=== PATIENT | male | born 1975 | race Caucasian/White ===

== ENCOUNTER 2018-06-03 13:11 | Emergency (ER) | payer OTHER ==
[2018-06-03 13:24] VITALS: BP 125/72; PULSE 79; TEMP 98; BMI 27.2
[2018-06-03] MEDS ORDERED: KETOROLAC TROMETHAMINE 60 MG/2 ML VIAL IM ONE (14:46)
--- NOTE | 2018-06-03 14:49 | PDOC ---
History of Present Illness - General Chief Complaint: Back Pain Stated Complaint: PT. HERE FOR LOWER BACK X 4 DAYS/ PAIN OF 10 Time Seen by Provider: 06/03/18 13:57 - History of Present Illness Initial Comments: 06/03/18 14:45 42-year-old male without comorbidities presents for evaluation of lower back pain with posterior lateral leg radicular symptoms 3 days. He states he was lifting a box at work and felt a strain in his back. Past History - Past Medical History Allergies/Adverse Reactions: Allergies Allergy/AdvReac Type Severity Reaction Status Date / Time No Known Allergies Allergy Verified 06/03/18 13:17 Home Medications: Ambulatory Orders Cyclobenzaprine HCl [Flexeril 10 mg] 10 mg PO HS PRN #10 tablet 06/03/18 Methylprednisolone [Medrol Dose Bo] 4 mg PO ASDIR #21 tablet 06/03/18 - Suicide/Smoking/Psychosocial Hx Smoking History: Never smoked Information on smoking cessation initiated: No Hx Alcohol Use: No Drug/Substance Use Hx: No Review of Systems - Review of Systems Musculoskeletal: Yes: Back Pain Neurological: Yes: See HPI *Physical Exam - Vital Signs Last Vital Signs Temp Pulse Resp BP Pulse Ox 98.0 F 79 20 125/72 99 06/03/18 13:18 06/03/18 13:18 06/03/18 13:18 06/03/18 13:18 06/03/18 13:18 - Physical Exam Comments: 06/03/18 14:46 Lumbar spine skin color and temperature are normal decreased range of motion moderate right and left sided musculature spasm and tenderness. Left greater than right. 5 out of 5 strength in bilateral lower extremities without gross sensorimotor deficits. Is neurovascularly intact Medical Decision Making - Medical Decision Making 06/03/18 14:47 No gross motor deficits or sensory deficits on examination. I will treat his pain with a shot of Toradol have him start a Medrol Dosepak tomorrow and point him in the way of orthopedic spine surgery for further evaluation and treatment. I've also given a prescription for Flexeril 06/03/18 14:49 06/03/18 14:49 *DC/Admit/Observation/Transfer Diagnosis at time of Disposition: Lumbar radiculopathy - Discharge Dispostion Disposition: HOME Condition at time of disposition: Stable Decision to Admit order: No - Prescriptions Prescriptions: Cyclobenzaprine HCl [Flexeril 10 mg] 10 mg PO HS PRN #10 tablet PRN Reason: Muscle Spasms Methylprednisolone [Medrol Dose Bo] 4 mg PO ASDIR #21 tablet - Referrals Referrals: Richard Fritz MD [Primary Care Provider] - Jarod Perez MD [Staff Physician] - - Patient Instructions Printed Discharge Instructions: Lumbar Radiculopathy, DI for Lumbar Radiculopathy Additional Instructions: Regrese a la gaye de emergencias por empeoramiento de los sntomas. Por favor, comience el paquete de esteroides maana y tmelo segn las indicaciones y termine todo el curso. Los relajantes musculares annmarie tableta antes de acostarse y le darn sueo. Janette un seguimiento con ciruga ortopdica de la columna vertebral en 1-2 foster para annmarie evaluacin adicional y opciones de tratamiento. return to the emergency room for worsening symptoms. Please start the steroid pack tomorrow and take it as directed and finish the entire course. The muscle relaxers one tablet before bedtime and will make you sleepy. Follow-up with orthopedic spine surgery in 1-2 days for further evaluation and treatment options. Print Language: RUSSIAN - Post Discharge Activity
[2018-06-03] MEDS ORDERED: KETOROLAC TROMETHAMINE 60 MG/2 ML VIAL ONE (14:53)
== END 2018-06-03 14:59 | disposition home or self-care (01) ==
LOC: JERFT 13:11
PROC: 3E0233Z Introduction of Anti-inflammatory into Muscle, Percutaneous Approach (ICD-10-PCS; principal; 2018-06-03)
DX: M54.16 Radiculopathy, lumbar region (principal); X50.9XXA Other and unspecified overexertion or strenuous movements or postures, initial encounter; Y93.89 Activity, other specified; Y92.69 Other specified industrial and construction area as the place of occurrence of the external cause; Y99.0 Civilian activity done for income or pay
CPT/HCPCS: 96372; 99281-25